=== PATIENT | female | born 1965 | race Caucasian/White ===

== ENCOUNTER 2017-04-18 08:39 | Outpatient (CLI) | payer OTHER | END 2017-04-18 08:40 | disposition home or self-care (01) | LOC: BICMAMMO 08:39 | PROVIDERS: ATTEND Nurse Practitioner Family | DX: Z12.31 Encounter for screening mammogram for malignant neoplasm of breast (principal) | CPT/HCPCS: 77063; 77067 ==

== ENCOUNTER 2018-04-23 12:35 | Outpatient (CLI) | payer OTHER ==
--- NOTE | 2018-04-23 13:54 | RAD ---
TWO VIEWS OF THE LUMBAR SPINE: Date: 04-23-18 Comparison: None. History: Back pain, injury. FINDINGS: Five lumbar type vertebral bodies present with intact pedicles on frontal imaging. Lateral imaging de monstrates normal vertebral body height and alignment. No acute osseous abnormality. IMPRESSION: No acute findings. If there are radicular symptoms, MRI suggested. POS: [facility]
== END 2018-04-23 12:36 | disposition home or self-care (01) ==
LOC: TBSIIMAG 12:35
PROVIDERS: ATTEND Neurological Surgery
DX: M54.5 Low back pain (principal)
CPT/HCPCS: 72100